=== PATIENT | female | born 1985 | race Caucasian/White ===

== ENCOUNTER 2016-10-05 10:15 | Emergency (ER) | payer BC ==
[2016-10-05 10:38] VITALS: BP 132/73; PULSE 88; RESP 17; TEMP 98
[2016-10-05] MEDS ORDERED: predniSONE 50 MG TAB PO STA (11:30)
--- NOTE | 2016-10-05 11:33 | ED ---
General Adult HPI - General Chief complaint: Allergic Reaction Stated complaint: bee sting/arm swollen Time Seen by Provider: 10/05/16 11:01 Source: patient, RN notes reviewed Mode of arrival: ambulatory Limitations: no limitations - History of Present Illness Initial comments: Patient 31-year-old female who presents emergency room today with a chief complaint of a bee sting that occurred 2 days ago. She states she was stung to the right forearm. She's noticed that the swelling does not seem to be improving. Patient states she's been trying Benadryl at home with little relief. She denies any other complaints or associated symptoms. Patient denies any recent fever, chills, shortness of breath, chest pain, back pain, abdominal pain, nausea or vomiting, numbness or tingling, dysuria or hematuria, constipation or diarrhea, headaches or visual changes, or any other complaints. - Related Data Previous Rx's Medication Instructions Recorded Famotidine [Pepcid] 20 mg PO BID #20 tablet 10/05/16 Hydrocortisone Cream 1 applic TOPICAL TID #1 cream..g. 10/05/16 [Hydrocortisone 1% Cream] diphenhydrAMINE [Benadryl] 1 - 2 tab PO Q6HR PRN #30 capsule 10/05/16 predniSONE 50 mg PO DAILY #5 tab 10/05/16 Allergies Allergy/AdvReac Type Severity Reaction Status Date / Time bee pollen Allergy Itching Verified 10/05/16 10:45 bee venom protein (honey bee) Allergy Itching Verified 10/05/16 10:45 mold Allergy Unknown Verified 10/05/16 10:45 Review of Systems ROS Statement: Those systems with pertinent positive or pertinent negative responses have been documented in the HPI. ROS Other: All systems not noted in ROS Statement are negative. Past Medical History Past Medical History: No Reported History History of Any Multi-Drug Resistant Organisms: None Reported Past Surgical History: No Surgical Hx Reported Past Psychological History: No Psychological Hx Reported Smoking Status: Never smoker Past Alcohol Use History: Rare Past Drug Use History: None Reported General Exam - General Exam Comments Initial Comments: General: The patient is awake and alert, in no distress, and does not appear acutely ill. Neck: The neck is supple, there is no tenderness or JVD. Cardiovascular: There is a regular rate and rhythm. No murmur, rub or gallop is appreciated. Respiratory: Lungs are clear to auscultation, respirations are non-labored, breath sounds are equal. No wheezes, stridor, rales, or rhonchi. Musculoskeletal: Full range motion. Sensation intact pulses equal bilaterally 2 +. Strength 5/5. Neurological: A&O x 3. CN II-XII intact, There are no obvious motor or sensory deficits. Coordination appears grossly intact. Speech is normal. Skin: He does have local redness to the posterior aspect of the right forearm. Measures approximately 10-12 cm across the largest section. It is red and inflamed there is no lymphangitic streaking. Psychiatric: Normal mood and affect. Limitations: no limitations Course Vital Signs 10/05/16 10:34 Temperature 98.0 F Pulse Rate 88 Respiratory 17 Rate Blood Pressure 132/73 O2 Sat by Pulse 98 Oximetry Medical Decision Making - Medical Decision Making Patient given dose of steroids here in the emergency room. She is advised to continue Benadryl also a topical steroid and Pepcid. Will be provided a prescription for steroids to use if symptoms continue his symptoms are not improving. Advised return to emergency room if any symptoms increase or worsen or for any other concerns. Disposition Clinical Impression: Allergic reaction Disposition: HOME SELF-CARE Condition: Good Instructions: Insect Bite or Sting (ED) Additional Instructions: Please use medication as discussed. Please follow-up with family doctor in the next 2 days of symptoms have not improved. Please return to emergency room if the symptoms increase or worsen or for any other concerns. Prescriptions: diphenhydrAMINE [Benadryl] 1 - 2 tab PO Q6HR PRN #30 capsule PRN Reason: Allergic Reaction Famotidine [Pepcid] 20 mg PO BID #20 tablet Hydrocortisone Cream [Hydrocortisone 1% Cream] 1 applic TOPICAL TID #1 cream..g. predniSONE 50 mg PO DAILY #5 tab Referrals: Vasu Frazier MD [Primary Care Provider] - 1-2 days Time of Disposition: 11:33
== END 2016-10-05 11:57 | disposition home or self-care (01) ==
LOC: EC 10:15
DX: T63.441A Toxic effect of venom of bees, accidental (unintentional), initial encounter (principal); Z91.030 Bee allergy status; Z91.048 Other nonmedicinal substance allergy status
CPT/HCPCS: 99283 ×2; J7512

== ENCOUNTER 2017-06-23 22:49 | Outpatient (CLI) | payer BC, OTHER ==
[2017-06-23 23:53] LABS: Appearance,Urine Cloudy (Clear); Bacteria,Urine Rare /hpf; Bilirubin,Urine Negative (Negative); Blood,Urine Negative (Negative); Color,Urine Yellow; Glucose,Urine (UA) Negative (Negative); Ketones,Urine Negative (Negative); Leukocyte Esterase,Urine Small (Negative); Mucus,Urine Rare /hpf; Nitrite,Urine Negative (Negative); PH, Urine 5.5 (5.0-8.0); Protein,Urine Trace (Negative); RBC,Urine 2 /hpf (0-5); Squamous Epithelial Cell,Urine 6 /hpf (0-4); Urobilinogen,Urine <2.0 mg/dL (<2.0); WBC,Urine 5 /hpf (0-5)
[2017-06-24] MEDS: TERBUTALINE 1 MG/ML VIAL SQ PRN ×2 (00:03→00:21)
[2017-06-24] MEDS: LACTATED RINGERS 1,000 ML IV ONE ×2 (00:24)
[2017-06-24 01:18] VITALS: BP 129/80; PULSE 89; RESP 16; TEMP 98
--- NOTE | 2017-06-25 10:35 | P.MSEPDOC ---
Presenting Problems - Arrival Data Date of Arrival on Unit: 06/23/17 Time of Arrival on Unit: 22:49 Mode of Transport: Wheelchair - Complaint OB-Reason for Admission/Chief Complaint: Rule Out SROM, Pain Comment: leaking around 1999. no leaking since. lower back and abdominal pain. 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 Review of Systems - Review of Systems Constitutional: No problems Breast: No problems ENT: No problems Cardiovascular: No problems Respiratory: No problems Gastrointestinal: No problems Genitourinary: Increased frequency Musculoskeletal: No problems Neurological: No problems Skin: No problems Vital Signs - Temperature Temperature: 98.0 F Temperature Source: Temporal Artery Scan - Pulse Right Sitting Brachial Pulse Rate: 89 Pulse Assessment Method: Automatic Cuff - Respirations Respiratory Rate: 16 Oxygen Delivery Method: Room Air O2 Sat by Pulse Oximetry: 98 - Blood Pressure Right Arm Sitting Blood Pressure: 129/80 Blood Pressure Mean: 96 Blood Pressure Source: Automatic Cuff Medical Screen Scoring (Pre) - Cervical Exam Dilation: 1-3 cm = 1 Effacement: More than 50% = 2 Membranes: Intact - Uterine Contractions Frequency: < 36 weeks = 6 Duration: > 40 seconds = 2 - Pain Assessment Pain Location and Character: Lower, Abdomen Pain Scale Used: Numeric (1 - 10) Pain Intensity: 3 Pain Management Goal: 2 Pain Description: *Acute, Cramping, Pressure Pain Radiation Location: lower back Pain Frequency: Intermittent Pain Duration: 3 Pain Duration Units: Hours Pain Behavior: Vocalization Pain Aggravating Factors: Activity - Assessment Baseline FHR: 135 Heart Rate - NICHD Category: Category I (Normal) = 0 NST: Non-reactive = 3 - Total Score Total Score (Pre): 14 - Level of Risk Level of Risk: High (10+) Physician Notification (Pre) - Physician Notified Physician Notified Date: 06/24/17 Physician Notified Time: 23:42 Physician/Practitioner Notifed:: rachael Spoke With: mechelle New Order Received: Yes - Notification Comment Comment: hydrate with 1L bolus of LR, start terbulatline protocol Medical Screen Scoring (Post) - Cervical Exam Dilation: 1-3 cm = 1 Effacement: More than 50% = 2 Membranes: Intact - Uterine Contractions Frequency: N/A Duration: N/A Intensity: N/A - Maternal Vital Signs Maternal Temperature: N/A Maternal Blood Pressure: N/A Signs of Preeclampsia: N/A Maternal Respirations: N/A - Pain Assessment Pain Scale Used: Numeric (1 - 10) Pain Intensity: 2 - Assessment Heart Rate: 135 Heart Rate - NICHD Category: Category I (Normal) = 0 NST: Non-reactive = 3 Position: N/A Station: N/A - Total Score Total Score (Post): 6 - Post Treatment Level of Risk Post Treatment Level of Risk: Medium (6-9) Physician Notification (Post) - Physician Notified Physician Notified Date: 06/24/17 Physician Notified Time: 00:41 Physician/Practitioner Notified:: rachael Spoke With: rachael New Order Received: Yes - Notification Comment Comment: d/c home with orders to f/u with [facility] tomorrow AM. Disposition - Disposition OB Disposition: Discharge to home Discharge Date: 06/24/17 Discharge Time: 00:57 I agree with the RN Medical Screening Exam: Yes Risk & Benefit of care provided described in d/c instruction: Yes Diagnosis: FALSE LABOR BEFORE 37 COMPLETED WEEKS OF GEST, THIRD TRI
== END 2017-06-24 00:57 | disposition home or self-care (01) ==
LOC: FBPOP 22:49
PROVIDERS: ATTEND Obstetrics & Gynecology
DX: O47.03 False labor before 37 completed weeks of gestation, third trimester (principal); Z3A.34 34 weeks gestation of pregnancy
CPT/HCPCS: 59025; 99214; 96360; 96372; 84112; 81001; J3105

== ENCOUNTER 2017-10-20 00:16 | Emergency (ER) | payer BC, OTHER ==
[2017-10-20] MEDS ORDERED: MORPHINE SULFATE 4 MG/ML SYRINGE IV STA (00:49)
[2017-10-20] MEDS ORDERED: SODIUM CHLORIDE 0.9% 1,000 ML IV STA (00:49)
[2017-10-20] MEDS ORDERED: ONDANSETRON 4 MG/2 ML VIAL IVP STA (00:49)
[2017-10-20 01:16] LABS: Basophils % (A) 0 %; Eosinophils % (A) 0 %; HCT 44.7 % (34.0-46.0); HGB 13.6 gm/dL (11.4-16.0); Lymphocytes # (A) 1.3 k/uL (1.0-4.8); Lymphocytes % (A) 11 %; MCH 26.6 pg (25.0-35.0); MCHC 30.5 g/dL (31.0-37.0); MCV 87.2 fL (80.0-100.0); Mean Platelet Volume 6.7; Monocytes # (A) 0.5 k/uL (0-1.0); Monocytes % (A) 4 %; Neutrophils # (A) 10.1 k/uL (1.3-7.7); Neutrophils % (A) 84 %; Platelet Count 320 k/uL (150-450); RBC 5.13 m/uL (3.80-5.40); WBC 12.1 k/uL (3.8-10.6)
[2017-10-20 01:21] LABS: Appearance,Urine Cloudy (Clear); Bacteria,Urine Occasional /hpf; Bilirubin,Urine Negative (Negative); Blood,Urine Negative (Negative); Color,Urine Yellow; Glucose,Urine (UA) Negative (Negative); Ketones,Urine Negative (Negative); Leukocyte Esterase,Urine Negative (Negative); Mucus,Urine Occasional /hpf; Nitrite,Urine Negative (Negative); PH, Urine 6.5 (5.0-8.0); Protein,Urine Trace (Negative); Specific Gravity,Urine 1.021 (1.001-1.035); Squamous Epithelial Cell,Urine 8 /hpf (0-4); Urobilinogen,Urine <2.0 mg/dL (<2.0); WBC,Urine 1 /hpf (0-5)
[2017-10-20 01:30] LABS: ALT 42 U/L (9-52); AST 45 U/L (14-36); Albumin 4.5 g/dL (3.5-5.0); Alkaline Phosphatase 95 U/L (38-126); Amylase 67 U/L (30-110); Anion Gap 8 mmol/L; Blood Urea Nitrogen 12 mg/dL (7-17); Calcium 9.7 mg/dL (8.4-10.2); Carbon Dioxide 27 mmol/L (22-30); Chloride 103 mmol/L (98-107); Glucose 148 mg/dL (74-99); Lipase 88 U/L (23-300); Potassium 4.3 mmol/L (3.5-5.1); Sodium 138 mmol/L (137-145); Total Bilirubin 0.6 mg/dL (0.2-1.3); Total Protein 8.1 g/dL (6.3-8.2)
--- NOTE | 2017-10-20 01:46 | US ---
EXAMINATION TYPE: US abdomen limited DATE OF EXAM: 10/20/2017 COMPARISON: NONE CLINICAL HISTORY: Right upper quadrant pain. RUQ pain nausea and vomiting. EXAM MEASUREMENTS: Liver Length: 19.2 cm Gallbladder Wall: 0.23 cm CBD: 0.9 cm Right Kidney: 11.0 x 4.1 x 3.8 cm Pancreas: Tail obscured by overlying bowel gas Liver: Hepatomegaly. Gallbladder: Echogenic foci seen. Hydropic 12.5cm. Evidence for sonographic Tinsley's sign: Yes CBD: Dilated Right Kidney: No hydronephrosis or masses seen IMPRESSION: Large gallbladder with multiple tiny gallstones and echogenic bile. No dilated intrahepat ic bile ducts. Common bile duct is large and this suggests some degree of gallbladder dysfunction. No gallbladder wall thickening.
--- NOTE | 2017-10-20 01:51 | ED ---
Abdominal Pain HPI - General Chief Complaint: Abdominal Pain Stated Complaint: Flank Pain Time Seen by Provider: 10/20/17 00:29 Source: patient, family Mode of arrival: ambulatory Limitations: no limitations - History of Present Illness Initial Comments: 32-year-old female patient presents to the emergency department today for complaints of right upper quadrant abdominal pain and right upper back pain. Patient states this started approximately 4 hours ago and has been steadily getting worse. Patient states she has been nauseated and has had several episodes of vomiting. Patient denies any history of similar symptoms. Denies any fevers or chills. She denies any constipation or diarrhea. Patient denies any recent rash, shortness breath, chest pain, numbness, tingling, dizziness, weakness, hematuria, dysuria, urinary urgency, urinary frequency, headache, visual changes, or any other complaints. Denies any chance of . - Related Data Home Medications Medication Instructions Recorded Confirmed Acetaminophen [Tylenol] 325 mg PO Q4H 06/23/17 10/20/17 Loratadine [Claritin] 10 mg PO DAILY 06/23/17 10/20/17 Pnv No.111/Iron/Folate/Dha 1 cap PO DAILY 06/23/17 10/20/17 [Nestabs One Softgel] Sertraline [Zoloft] 25 mg PO DAILY 10/20/17 10/20/17 Previous Rx's Medication Instructions Recorded Ondansetron [Zofran ODT] 4 mg PO Q8HR PRN #10 tab 10/20/17 Allergies Allergy/AdvReac Type Severity Reaction Status Date / Time bee pollen Allergy Itching Verified 10/20/17 00:22 bee venom protein (honey bee) Allergy Itching Verified 10/20/17 00:22 mold Allergy Unknown Verified 10/20/17 00:22 Review of Systems ROS Statement: Those systems with pertinent positive or pertinent negative responses have been documented in the HPI. ROS Other: All systems not noted in ROS Statement are negative. Past Medical History Past Medical History: No Reported History Additional Past Medical History / Comment(s): Gestational Diabetes 02/05, History of Any Multi-Drug Resistant Organisms: None Reported Past Surgical History: No Surgical Hx Reported Additional Past Surgical History / Comment(s): wisdom teeth Past Psychological History: No Psychological Hx Reported Smoking Status: Never smoker Past Alcohol Use History: Rare Past Drug Use History: None Reported General Exam Limitations: no limitations General appearance: alert, in no apparent distress, other (This is a well- developed, obese adult female patient in mild distress related to pain. Vital signs upon presentation are temperature 98.5F, pulse 87, respirations 20, blood pressure 148/88, pulse ox 99% on room air.) Eye exam: Present: normal appearance, PERRL, EOMI. Absent: scleral icterus, conjunctival injection, periorbital swelling ENT exam: Present: normal exam, normal oropharynx, mucous membranes moist Respiratory exam: Present: normal lung sounds bilaterally. Absent: respiratory distress, wheezes, rales, rhonchi, stridor Cardiovascular Exam: Present: regular rate, normal rhythm, normal heart sounds. Absent: systolic murmur, diastolic murmur, rubs, gallop, clicks GI/Abdominal exam: Present: soft, tenderness (Right upper quadrant tenderness, positive Tinsley sign), normal bowel sounds. Absent: distended, guarding, rebound, rigid Back exam: Present: normal inspection, tenderness (Right upper back tenderness) Neurological exam: Present: alert, oriented X3, CN II-XII intact Psychiatric exam: Present: normal affect, normal mood Skin exam: Present: warm, dry, intact, normal color. Absent: rash Course Vital Signs 10/20/17 00:19 Temperature 98.5 F Pulse Rate 87 Respiratory 20 Rate Blood Pressure 148/88 O2 Sat by Pulse 99 Oximetry Medical Decision Making - Medical Decision Making 32-year-old female patient presents the emergency department today for complaints of right upper quadrant abdominal pain, right upper back pain. Physical examination did reveal right upper quadrant abdominal tenderness with positive Tinsley sign. Labs reviewed and showed a white blood cell count at 12.1 , AST 45. hCG negative. Ultrasound did show large gallbladder with multiple tiny gallstones. Common bile duct was enlarged suggesting gallbladder status function. There is no gallbladder wall thickening. Patient is afebrile, vital signs are stable. She is feeling better after receiving medications here in the emergency department. Did discuss likelihood that she will need to have her gallbladder removed however given there is no sign of cholecystitis at this time she is able to follow-up outpatient with the surgeon. Patient is comfortable with this plan. She'll be given medications and manage symptoms at home. She is instructed to follow low-fat diet and avoid greasy foods. Return parameters discussed in detail. She verbalizes understanding and agrees with this plan. - Lab Data Result diagrams: 10/20/17 01:09 10/20/17 01:09 Lab Results 10/20/17 10/20/17 10/20/17 Range/Units 01:09 01:09 01:09 WBC 12.1 H (3.8-10.6) k/uL RBC 5.13 (3.80-5.40) m/uL Hgb 13.6 (11.4-16.0) gm/dL Hct 44.7 (34.0-46.0) % MCV 87.2 (80.0-100.0) fL MCH 26.6 (25.0-35.0) pg MCHC 30.5 L (31.0-37.0) g/dL RDW 14.0 (11.5-15.5) % Plt Count 320 (150-450) k/uL Neutrophils % 84 % Lymphocytes % 11 % Monocytes % 4 % Eosinophils % 0 % Basophils % 0 % Neutrophils # 10.1 H (1.3-7.7) k/uL Lymphocytes # 1.3 (1.0-4.8) k/uL Monocytes # 0.5 (0-1.0) k/uL Eosinophils # 0.0 (0-0.7) k/uL Basophils # 0.0 (0-0.2) k/uL Sodium 138 (137-145) mmol/L Potassium 4.3 (3.5-5.1) mmol/L Chloride 103 (98-107) mmol/L Carbon Dioxide 27 (22-30) mmol/L Anion Gap 8 mmol/L BUN 12 (7-17) mg/dL Creatinine 0.70 (0.52-1.04) mg/dL Est GFR (CKD-EPI)AfAm >90 (>60 ml/min/1.73 sqM) Est GFR (CKD-EPI)NonAf >90 (>60 ml/min/1.73 sqM) Glucose 148 H (74-99) mg/dL Calcium 9.7 (8.4-10.2) mg/dL Total Bilirubin 0.6 (0.2-1.3) mg/dL AST 45 H (14-36) U/L ALT 42 (9-52) U/L Alkaline Phosphatase 95 (38-126) U/L Total Protein 8.1 (6.3-8.2) g/dL Albumin 4.5 (3.5-5.0) g/dL Amylase 67 (30-110) U/L Lipase 88 (23-300) U/L Urine Color Urine Appearance (Clear) Urine pH (5.0-8.0) Ur Specific [place] (1.001-1.035) Urine Protein (Negative) Urine Glucose (UA) (Negative) Urine Ketones (Negative) Urine Blood (Negative) Urine Nitrite (Negative) Urine Bilirubin (Negative) Urine Urobilinogen (<2.0) mg/dL Ur Leukocyte Esterase (Negative) Urine WBC (0-5) /hpf Ur Squamous Epith Cells (0-4) /hpf Urine Bacteria (None) /hpf Urine Mucus (None) /hpf Urine HCG, Qual Not Detected (Not Detectd) 10/20/17 Range/Units 01:09 WBC (3.8-10.6) k/uL RBC (3.80-5.40) m/uL Hgb (11.4-16.0) gm/dL Hct (34.0-46.0) % MCV (80.0-100.0) fL MCH (25.0-35.0) pg MCHC (31.0-37.0) g/dL RDW (11.5-15.5) % Plt Count (150-450) k/uL Neutrophils % % Lymphocytes % % Monocytes % % Eosinophils % % Basophils % % Neutrophils # (1.3-7.7) k/uL Lymphocytes # (1.0-4.8) k/uL Monocytes # (0-1.0) k/uL Eosinophils # (0-0.7) k/uL Basophils # (0-0.2) k/uL Sodium (137-145) mmol/L Potassium (3.5-5.1) mmol/L Chloride (98-107) mmol/L Carbon Dioxide (22-30) mmol/L Anion Gap mmol/L BUN (7-17) mg/dL Creatinine (0.52-1.04) mg/dL Est GFR (CKD-EPI)AfAm (>60 ml/min/1.73 sqM) Est GFR (CKD-EPI)NonAf (>60 ml/min/1.73 sqM) Glucose (74-99) mg/dL Calcium (8.4-10.2) mg/dL Total Bilirubin (0.2-1.3) mg/dL AST (14-36) U/L ALT (9-52) U/L Alkaline Phosphatase (38-126) U/L Total Protein (6.3-8.2) g/dL Albumin (3.5-5.0) g/dL Amylase (30-110) U/L Lipase (23-300) U/L Urine Color Yellow Urine Appearance Cloudy H (Clear) Urine pH 6.5 (5.0-8.0) Ur Specific [place] 1.021 (1.001-1.035) Urine Protein Trace H (Negative) Urine Glucose (UA) Negative (Negative) Urine Ketones Negative (Negative) Urine Blood Negative (Negative) Urine Nitrite Negative (Negative) Urine Bilirubin Negative (Negative) Urine Urobilinogen <2.0 (<2.0) mg/dL Ur Leukocyte Esterase Negative (Negative) Urine WBC 1 (0-5) /hpf Ur Squamous Epith Cells 8 H (0-4) /hpf Urine Bacteria Occasional H (None) /hpf Urine Mucus Occasional H (None) /hpf Urine HCG, Qual (Not Detectd) - Radiology Data Radiology results: report reviewed Ultrasound of the right upper quadrant was obtained. Report was reviewed in its entirety. Impression by Dr. Hollingsworth shows large gallbladder with multiple tiny gallstones and echogenic bile. No dilated intrahepatic bile ducts. Common bile duct is large and this suggests some degree of cough bladder dysfunction. No gallbladder wall thickening. Disposition Clinical Impression: Cholelithiasis, Dysfunctional gallbladder Disposition: HOME SELF-CARE Condition: Good Instructions: Gallstones (ED), Low Fat Diet (ED) Additional Instructions: Avoid fatty or greasy foods. Take medications as directed. Follow-up with surgeon for recheck as soon as possible. Return here immediately for any new, worsening, or concerning symptoms. Prescriptions: Ondansetron [Zofran ODT] 4 mg PO Q8HR PRN #10 tab PRN Reason: Nausea Is patient prescribed a controlled substance at d/c from ED?: No Referrals: Vasu Frazier MD [Primary Care Provider] - 1-2 days Austyn Mejia MD [Medical Doctor] - 1-2 days Time of Disposition: 02:12
[2017-10-20] MEDS ORDERED: ACET/COD 300 MG/30 MG STARTER PACK 6 TAB BTL PO STA (02:10)
[2017-10-20] MEDS ORDERED: ONDANSETRON 4 MG ODT STARTER PACK 2 TAB BTL PO STA (02:10)
[2017-10-20 02:21] VITALS: BP 153/92; PULSE 84; RESP 18; TEMP 98.7
== END 2017-10-20 02:30 | disposition home or self-care (01) ==
LOC: EC 00:16
DX: K80.20 Calculus of gallbladder without cholecystitis without obstruction (principal); K82.8 Other specified diseases of gallbladder; Z32.02 Encounter for pregnancy test, result negative; Z91.030 Bee allergy status; Z91.048 Other nonmedicinal substance allergy status; Z79.899 Other long term (current) drug therapy
CPT/HCPCS: 36415; 80053; 82150; 83690; 85025; 81001; 81025; 76705; 99284; 96374; 96375; 96361; J2270; J2405; S0119

== ENCOUNTER 2017-11-15 06:46 | Day surgery (SDC) | payer BC ==
[2017-11-09 09:20] VITALS: BMI 39.4
[~2017-11-15 06:46] MED LIST: HEPARIN SODIUM,PORCINE 5,000 UNIT/ML 1 ML VIAL SQ ONE; LACTATED RINGERS 1,000 ML IV SCH; LIDOCAINE 1% 20 ML VIAL (10MG/ML) FOR IV START INTRADERMA PRN; ceFAZolin IN SWFI 2 GM/20 ML SYRINGE IVP ONE
[2017-11-15] MEDS: ONDANSETRON 4 MG/2 ML VIAL IVP ONE ×2 (07:27→09:18)
[2017-11-15] MEDS ORDERED: DEXAMETHASONE SOD PHOSPHATE 10 MG/ML 1 ML VIAL IV ONE (07:28)
[2017-11-15] MEDS ORDERED: MIDAZOLAM 2 MG/2 ML VIAL IVP ONE (07:30)
--- NOTE | 2017-11-15 08:00 | P.GSHP ---
History of Present Illness H&P Date: 11/15/17 Chief Complaint: Right upper quadrant pain This is a 32-year-old female who presents today for laparoscopic ostectomy. Patient is a complete the right upper quadrant pain. She is worked up found have gallstones. Past Medical History Past Medical History: Diabetes Mellitus Additional Past Medical History / Comment(s): Hx Gestational Diabetes 02/05. History of Any Multi-Drug Resistant Organisms: None Reported Past Surgical History: No Surgical Hx Reported Additional Past Surgical History / Comment(s): [place] teeth removed. Past Anesthesia/Blood Transfusion Reactions: No Reported Reaction Past Psychological History: Depression Additional Psychological History / Comment(s): Current depression, "lost an almost term baby June 2017." Smoking Status: Never smoker Past Alcohol Use History: Rare Past Drug Use History: None Reported - Past Family History Mother Family Medical History: No Reported History Medications and Allergies Home Medications Medication Instructions Recorded Confirmed Type Loratadine [Claritin] 10 mg PO DAILY 06/23/17 11/15/17 History Pnv No.111/Iron/Folate/Dha 1 cap PO DAILY 06/23/17 11/15/17 History [Nestabs One Softgel] Sertraline [Zoloft] 25 mg PO HS 10/20/17 11/15/17 History Allergies Allergy/AdvReac Type Severity Reaction Status Date / Time bee pollen Allergy Itching Verified 11/15/17 07:09 bee venom protein (honey bee) Allergy Itching Verified 11/15/17 07:09 mold Allergy Unknown Verified 11/15/17 07:09 Environmental Allergy See Comment Uncoded 11/15/17 07:09 Surgical - Exam Vital Signs Temp Pulse Resp BP Pulse Ox 97.8 F 78 16 130/82 98 11/15/17 07:13 11/15/17 07:13 11/15/17 07:13 11/15/17 07:13 11/15/17 07:13 - General well developed, no distress - Eyes PERRL - ENT normal pinna - Neck no masses - Respiratory normal expansion - Cardiovascular Rhythm: regular - Abdomen Mild right quadrant pain Abdomen: soft Assessment and Plan Assessment: When quadrant pain Cholelithiasis We'll perform laparoscopic cholecystectomy
[2017-11-15] MEDS ORDERED: BUPIVACAIN-EPI 0.25%-1:200,000 30 ML VIAL SQ ONE (08:30)
[2017-11-15] MEDS ORDERED: LACTATED RINGERS 1,000 ML IV ONE (08:52)
[2017-11-15] MEDS: HYDROmorphone 1 MG/ML 1 ML SYRINGE IVP PRN ×4 (09:18→09:42)
[2017-11-15 09:21] VITALS: TEMP 97.4
[2017-11-15] MEDS ORDERED: diphenhydrAMINE 50 MG/ML 1 ML VIAL IVP ONE (09:27)
[2017-11-15] MEDS ORDERED: HYDROcodone/APAP 7.5-325MG 1 EACH TAB PO ONE (10:34)
[2017-11-15 11:14] VITALS: RESP 18
[2017-11-15 11:41] VITALS: BP 117/77; PULSE 88
--- NOTE | 2017-11-15 15:02 | P.OP ---
Date of Procedure: 11/15/17 Preoperative Diagnosis: Cholelithiasis Cholecystitis Postoperative Diagnosis: Cholecystitis Cholelithiasis Procedure(s) Performed: Laparoscopic cholecystectomy Anesthesia: MAXI Surgeon: Guanakito Coto Estimated Blood Loss (ml): 5 Pathology: other (Gallbladder) Condition: stable Disposition: PACU Description of Procedure: The patient was placed on the operating table. The patient received a general endotracheal tube anesthesia. The patients abdomen was prepped and draped in the usual sterile fashion. Through an infraumbilical stab incision, the fascia of the anterior abdominal wall was grasped with a pair of Kochers and then the Veress needle was placed in the peritoneal cavity. Position of the Veress needle was confirmed with positive drop test. The abdomen was then insufflated. After adequate insufflation, the 10 mm trocar was placed in the peritoneal cavity. Following this the laparoscope was placed in the peritoneal cavity. The patient was placed in the head-up, right side up position and then a 5 mm trocar was placed in the right lateral and right subcostal position under direct visualization. A 8 mm trocar was placed in the epigastric position. The gallbladder was grasped in the fundus and infundibulum. Traction on the gallbladder was placed in the lateral and the cephalad positions. The triangle of [place] was visualized.. The cystic duct was bluntly dissected until the union of the cystic duct and common bile duct was seen. The cystic duct was then divided and sealed with the Harmonic scissors. A PDS Endoloop was then placed throughout the cystic duct stump. The cystic artery divided and sealed with the Harmonic scissors. The gallbladder was then removed from the liver bed using Harmonic scissors. The gallbladder was then extracted through the epigastric port site. Operative field was checked for any bleeding spots and Harmonic scissors was used to coagulate the liver bed. The abdomen was irrigated. The trocars were removed. The skin was closed using interrupted 3-0 Vicryl suture. Dermabond dressing were applied. The patient tolerated the procedure well.
== END 2017-11-15 12:01 | disposition home or self-care (01) ==
LOC: OR 06:46
PROVIDERS: ATTEND Surgery
DX: K80.10 Calculus of gallbladder with chronic cholecystitis without obstruction (principal); F32.9 Major depressive disorder, single episode, unspecified; Z79.899 Other long term (current) drug therapy; Z91.030 Bee allergy status; Z91.09 Other allergy status, other than to drugs and biological substances
CPT/HCPCS: 47562; 81025; 88304; J2250; J1200; J1644; J1100; J2405; J1170; J0690

== ENCOUNTER → 2020-04-06 | Outpatient (CLI) | payer BC, OTHER ==
--- NOTE | 2020-04-07 14:06 | MM ---
Reason for exam: screening (asymptomatic). Baseline mammogram. History: Patient is nulliparous. Took hormonal contraceptives for 5 years beginning at age 21. Physical Findings: Nurse did not find any significant physical abnormalities on exam. MG Screening Mammo w CAD Bilateral CC and MLO view(s) were taken. The breast tissue is heterogeneously dense. This may lower the sensitivity of mammography. 1.2cm mildly enlarged intrammary node posterior upper outer quadrant may be reactive. 6 month follow up recommended. Otherwise, no discrete abnormality. These results were verbally communicated with the patient and result sheet given to the patient on 04/06/20. ASSESSMENT: Probably benign, BI-RAD 3 RECOMMENDATION: Follow-up diagnostic mammogram of the right breast in 6 months.
== END | disposition home or self-care (01) ==
LOC: RADMAMWWP 14:07
PROVIDERS: ATTEND Obstetrics & Gynecology
DX: Z12.31 Encounter for screening mammogram for malignant neoplasm of breast (principal)
CPT/HCPCS: 77067

== ENCOUNTER 2020-06-20 16:09 | Emergency (ER) | payer BC, OTHER ==
[2020-06-20 16:14] VITALS: TEMP 98.6
[2020-06-20] MEDS ORDERED: SODIUM CHLORIDE 0.9% 1,000 ML IV STA (16:35)
--- NOTE | 2020-06-20 16:38 | ED ---
SOB HPI - General Chief Complaint: Shortness of Breath Stated Complaint: OSMANI Source: patient, RN notes reviewed Mode of arrival: wheelchair Limitations: no limitations - History of Present Illness Initial Comments: Patient is a 35-year-old female that presents to emergency department complaining of shortness of breath and chest heaviness. She notes that she's been tested a couple times for Covid both came back negative. She noted that symptoms began on Monday or side spiking a low-grade fever. She also notes that she does have pretty bad seasonal ALLERGIES and her worst is here due to the rapid change in weather. She notes that at her primary care in urgent care they were treating her as an upper respiratory tract infection and hopes to prevent pneumonia. She presents today due to the clinic being closed to all and is having Covid. She was in no apparent distress or pain while sitting up in bed during the exam interview. She denied any chest pain headache nausea vomiting diarrhea constipation fatigue chills. - Related Data Home Medications Medication Instructions Recorded Confirmed Loratadine [Claritin] 10 mg PO AC-SUPPER 06/23/17 06/04/19 Sertraline [Zoloft] 25 mg PO HS 10/20/17 06/04/19 Pnv No.95/Ferrous Fum/Folic AC 1 each PO DAILY 06/04/19 [ Multivitamin Tablet] metFORMIN HCL [Glucophage] 500 mg PO AC-SUPPER 06/04/19 Allergies Allergy/AdvReac Type Severity Reaction Status Date / Time bee pollen Allergy Itching Verified 06/20/20 16:14 bee venom protein (honey bee) Allergy Itching Verified 06/20/20 16:14 mold Allergy Unknown Verified 06/20/20 16:14 Environmental Allergy See Comment Uncoded 06/20/20 16:14 Review of Systems ROS Statement: Those systems with pertinent positive or pertinent negative responses have been documented in the HPI. ROS Other: All systems not noted in ROS Statement are negative. Past Medical History Past Medical History: Diabetes Mellitus Additional Past Medical History / Comment(s): TYPE 2 DIABETES, ENVIRONMENTAL ALLERGIES, STATES LMP FEBRUARY AND STARTED SPOTTING. History of Any Multi-Drug Resistant Organisms: None Reported Past Surgical History: Cholecystectomy Additional Past Surgical History / Comment(s): WISDOM TEETH Past Anesthesia/Blood Transfusion Reactions: No Reported Reaction, Motion Sickness Past Psychological History: Depression Smoking Status: Never smoker Past Alcohol Use History: None Reported Past Drug Use History: None Reported - Past Family History Mother Family Medical History: No Reported History General Exam Limitations: no limitations General appearance: alert, in no apparent distress, obese Head exam: Present: atraumatic, normocephalic, normal inspection Eye exam: Present: normal appearance, PERRL, EOMI. Absent: scleral icterus, conjunctival injection, periorbital swelling Neck exam: Present: normal inspection. Absent: tenderness, meningismus, lymphadenopathy Respiratory exam: Present: normal lung sounds bilaterally. Absent: respiratory distress, wheezes, rales, rhonchi, stridor Cardiovascular Exam: Present: regular rate, normal rhythm, normal heart sounds. Absent: systolic murmur, diastolic murmur, rubs, gallop, clicks GI/Abdominal exam: Present: soft, normal bowel sounds. Absent: distended, tenderness, guarding, rebound, rigid Extremities exam: Present: normal inspection, full ROM, normal capillary refill. Absent: tenderness, pedal edema, joint swelling, calf tenderness Back exam: Present: normal inspection Neurological exam: Present: alert, oriented X3, CN II-XII intact Psychiatric exam: Present: normal affect, normal mood Skin exam: Present: warm, dry, intact, normal color. Absent: rash Course Vital Signs 06/20/20 16:11 Temperature 98.6 F Pulse Rate 86 Respiratory 20 Rate Blood Pressure 138/79 O2 Sat by Pulse 96 Oximetry Medical Decision Making - Medical Decision Making 35-year-old female complaining of shortness of breath with Covid like symptoms. Labs, 4 Plex swab, chest x-ray, 1 L normal saline ordered. Patient was informed that she does meet criteria for monoclonal antibody therapy if her test comes back positive for Covid. She does wish to undergo IV infusion in that scenario. Covid test positive. Patient will undergo monoclonal antibody therapy. Case discussed with Dr. Jacinto, patient can discharge home after IV infusion. - Lab Data Result diagrams: 06/20/20 16:48 06/20/20 16:48 Lab Results 06/20/20 06/20/20 06/20/20 Range/Units 16:48 16:48 16:48 WBC 4.4 (3.8-10.6) k/uL RBC 4.97 (3.80-5.40) m/uL Hgb 14.2 (11.4-16.0) gm/dL Hct 42.5 (34.0-46.0) % MCV 85.4 (80.0-100.0) fL MCH 28.5 (25.0-35.0) pg MCHC 33.4 (31.0-37.0) g/dL RDW 13.4 (11.5-15.5) % Plt Count 188 (150-450) k/uL MPV 7.3 Neutrophils % 79 % Lymphocytes % 16 % Monocytes % 3 % Eosinophils % 0 % Basophils % 0 % Neutrophils # 3.5 (1.3-7.7) k/uL Lymphocytes # 0.7 L (1.0-4.8) k/uL Monocytes # 0.1 (0-1.0) k/uL Eosinophils # 0.0 (0-0.7) k/uL Basophils # 0.0 (0-0.2) k/uL Sodium 140 (137-145) mmol/L Potassium 4.2 (3.5-5.1) mmol/L Chloride 108 H (98-107) mmol/L Carbon Dioxide 26 (22-30) mmol/L Anion Gap 6 mmol/L BUN 10 (7-17) mg/dL Creatinine 0.62 (0.52-1.04) mg/dL Est GFR (CKD-EPI)AfAm >90 (>60 ml/min/1.73 sqM) Est GFR (CKD-EPI)NonAf >90 (>60 ml/min/1.73 sqM) Glucose 135 H (74-99) mg/dL Calcium 8.8 (8.4-10.2) mg/dL Total Bilirubin 0.2 (0.2-1.3) mg/dL AST 30 (14-36) U/L ALT 23 (4-34) U/L Alkaline Phosphatase 73 (38-126) U/L Total Protein 7.1 (6.3-8.2) g/dL Albumin 4.0 (3.5-5.0) g/dL Influenza Type A (PCR) Not Detected (Not Detectd) Influenza Type B (PCR) Not Detected (Not Detectd) RSV (PCR) Not Detected (Not Detectd) SARS-CoV-2 (PCR) Detected A (Not Detectd) - EKG Data -: EKG Interpreted by Ks EKG shows normal: sinus rhythm Rate: normal EKG Comments: Ventricular rate 85 bpm, SD interval 152 ms, QRS duration 106 ms, QT/QTC 360/420 ms, PareT axes 38/58/28. Normal sinus rhythm, normal ECG. - Radiology Data Radiology results: report reviewed, image reviewed Chest x-ray: Left lower lobe pneumonia. Normal heart. Disposition Clinical Impression: COVID-19 Disposition: HOME SELF-CARE Condition: Stable Instructions (If sedation given, give patient instructions): Coronavirus Disease 2019 (COVID-19) Additional Instructions: Please return to the Emergency Department if symptoms worsen or any other concerns. Follow-up primary care after the 10-14 day quarantine. From symptom onset. Increase oral fluids. Can take [id number] anti-inflammatories for pain and fever control. Is patient prescribed a controlled substance at d/c from ED?: No Referrals: Vasu Frazier MD [Primary Care Provider] - 1-2 days Time of Disposition: 18:00
[2020-06-20 17:02] LABS: Basophils % (A) 0 %; Eosinophils % (A) 0 %; HCT 42.5 % (34.0-46.0); HGB 14.2 gm/dL (11.4-16.0); Lymphocytes # (A) 0.7 k/uL (1.0-4.8); Lymphocytes % (A) 16 %; MCH 28.5 pg (25.0-35.0); MCHC 33.4 g/dL (31.0-37.0); MCV 85.4 fL (80.0-100.0); Mean Platelet Volume 7.3; Monocytes # (A) 0.1 k/uL (0-1.0); Monocytes % (A) 3 %; Neutrophils # (A) 3.5 k/uL (1.3-7.7); Neutrophils % (A) 79 %; Platelet Count 188 k/uL (150-450); RBC 4.97 m/uL (3.80-5.40); RDW 13.4 % (11.5-15.5); WBC 4.4 k/uL (3.8-10.6)
[2020-06-20 17:11] LABS: ALT 23 U/L (4-34); AST 30 U/L (14-36); African American GFR (CKD) >90 (>60 ml/min/1.73 sqM); Alkaline Phosphatase 73 U/L (38-126); Anion Gap 6 mmol/L; Blood Urea Nitrogen 10 mg/dL (7-17); Calcium 8.8 mg/dL (8.4-10.2); Carbon Dioxide 26 mmol/L (22-30); Chloride 108 mmol/L (98-107); Glucose 135 mg/dL (74-99); Non-African American GFR(CKD) >90 (>60 ml/min/1.73 sqM); Potassium 4.2 mmol/L (3.5-5.1); Sodium 140 mmol/L (137-145); Total Bilirubin 0.2 mg/dL (0.2-1.3); Total Protein 7.1 g/dL (6.3-8.2)
--- NOTE | 2020-06-20 17:42 | XR ---
EXAMINATION TYPE: XR chest 2V DATE OF EXAM: 06/20/2020 COMPARISON: NONE HISTORY: Short of breath TECHNIQUE: 2 views FINDINGS: Heart and mediastinum are normal. There is some patchy interstitial and airspace infiltrate left lower lobe. There is possible small infiltrate right midlung field. Bony thorax is intact. IMPRESSION: Left lower lobe pneumonia. Normal heart.
[2020-06-20] MEDS ORDERED: SODIUM CHLORIDE 0.9% 50 ML IVPB ONE (18:15)
[2020-06-20] MEDS ORDERED: BAMLANIVIMAB (EUA) 700 MG, ETESEVIMAB (EUA) 1,400 MG in SODIUM CHLORIDE 0.9% 50 ML IVPB ONE (18:30)
[2020-06-20 19:18] VITALS: BP 128/79; PULSE 56; RESP 18
== END 2020-06-20 19:53 | disposition home or self-care (01) ==
LOC: EC 16:09
DX: U07.1 COVID-19 (principal); E11.9 Type 2 diabetes mellitus without complications; Z90.49 Acquired absence of other specified parts of digestive tract; Z79.84 Long term (current) use of oral hypoglycemic drugs
CPT/HCPCS: 36415; 93005; 80053; 85025; 87636; 71046; 99285; 96365; 96361; Q0245

== ENCOUNTER 2021-04-28 16:27 | Outpatient (CLI) | payer BC, OTHER ==
[2021-04-28 17:44] VITALS: BP 124/73; PULSE 88; RESP 16; TEMP 97.3
--- NOTE | 2021-05-14 10:37 | P.MSEPDOC ---
Presenting Problems - Arrival Data Date of Arrival on Unit: 04/28/21 Time of Arrival on Unit: 16:27 Mode of Transport: Ambulatory - Complaint OB-Reason for Admission/Chief Complaint: Possible Onset of Labor, Rule Out SROM Medical History - Information : 3 Para: 0 Term: 0 : 1 Abortions: Spontaneous or Elective: 1 Number of Living Children: 0 - Gestational Age Gestational Age by DANYELLE (wks/days): 38 Weeks and 4 Days - History Complications: GDM Review of Systems - Review of Systems Constitutional: No problems Breast: No problems ENT: No problems Cardiovascular: No problems Respiratory: No problems Gastrointestinal: No problems Genitourinary: No problems Musculoskeletal: No problems Neurological: No problems Skin: No problems Vital Signs - Temperature Temperature: 97.3 F Temperature Source: Temporal Artery Scan - Pulse Right Pulse Rate: 88 Pulse Assessment Method: Automatic Cuff - Respirations Respiratory Rate: 16 Oxygen Delivery Method: Room Air O2 Sat by Pulse Oximetry: 100 - Blood Pressure Right Arm Blood Pressure: 124/73 Blood Pressure Mean: 90 Blood Pressure Source: Automatic Cuff Medical Screen Scoring - Cervical Exam Dilation (cm): 0 Membranes: Intact - Assessment - Baby A Baseline FHR: 140 Heart Rate - NICHD Category: Category I (Normal) NST: Reactive Physician Notification - Physician Notified Physician Notified Date: 04/28/21 Physician Notified Time: 17:20 Physician: Nory Vasquez New Order Received: Yes (discharge home) Maternal Triage Index - Maternal Triage Index Presenting for scheduled procedure w/no complaint: No - Stat/Priority 1 Stat Priority 1: No - Urgent/Priority 2 Urgent Priority 2: No - Prompt/Priority 3 Prompt Priority 3: No - Non-Urgent/Priority 4 Non-Urgent Priority 4: Yes Criteria Met for Priority 4: Amnisure negative Disposition - Disposition OB Disposition: Physician follow up in office, Discharge to home Discharge Date: 04/28/21 Discharge Time: 17:25 I agree with the RN Medical Screening Exam: Yes Case reviewed; plan agreed upon as documented in EMR&OBIX.: Yes Comments: Patient was neither seen nor examined by me Diagnosis: FALSE LABOR AT OR AFTER 37 COMPLETED WEEKS OF GESTATION
== END 2021-04-28 17:35 | disposition home or self-care (01) ==
LOC: FBPOP 16:27
PROVIDERS: ATTEND Obstetrics & Gynecology
DX: O47.1 False labor at or after 37 completed weeks of gestation (principal); Z3A.38 38 weeks gestation of pregnancy; Z91.030 Bee allergy status; Z91.09 Other allergy status, other than to drugs and biological substances
CPT/HCPCS: 59025; 84112; 99213

== ENCOUNTER 2021-04-29 10:41 | Inpatient (IN) | payer BC, OTHER ==
[2021-04-29] MEDS ORDERED: LIDOCAINE 1% (PF) 10 MG/ML (30 ML SDV) SQ PRN (10:54)
[2021-04-29] MEDS ORDERED: CITRIC ACID-SODIUM CITRATE 15 ML CUP PO ONE (10:56)
[2021-04-29] MEDS: LACTATED RINGERS 1,000 ML IV SCH ×4 (11:20→21:33)
[2021-04-29 11:49] LABS: Basophils % (A) 0 %; Eosinophils % (A) 0 %; HCT 40.5 % (34.0-46.0); HGB 13.3 gm/dL (11.4-16.0); Lymphocytes # (A) 1.8 k/uL (1.0-4.8); Lymphocytes % (A) 16 %; MCHC 32.8 g/dL (31.0-37.0); MCV 88.5 fL (80.0-100.0); Mean Platelet Volume 8.1; Monocytes # (A) 0.4 k/uL (0-1.0); Monocytes % (A) 4 %; Neutrophils # (A) 8.6 k/uL (1.3-7.7); Neutrophils % (A) 79 %; Platelet Count 258 k/uL (150-450); RBC 4.58 m/uL (3.80-5.40); RDW 14.2 % (11.5-15.5)
[2021-04-29 11:52] LABS: Glucose,Whole Blood 85 mg/dL (75-99)
[2021-04-29] MEDS ORDERED: NALBUPHINE 10 MG/ML (1 ML AMP) ONE (12:04)
[2021-04-29] MEDS ORDERED: KETOROLAC 15 MG/ML 1 ML VIAL ONE (12:04)
[2021-04-29] MEDS ORDERED: OXYTOCIN 30 UNITS/500 ML NS BAG IV ONE (12:04)
[2021-04-29] MEDS ORDERED: MORPHINE SULFATE (PF) 0.3 MG/0.3 ML SYR ONE (12:04)
--- NOTE | 2021-04-29 12:04 | P.HPOB ---
History of Present Illness H&P Date: 04/29/21 Chief Complaint: Regular uterine contractions, breech presentation This is a 35-year-old female 3 para 1011 EDC 05/08/2021 at 38-5/7 weeks' gestation. Patient presented last night for labor check, she was sent home. Today in the office she again complained of regular strong uterine contractions. She was noted to be breech presentation. The decision today now is made to proceed with primary low transverse section. She denies vaginal bleeding or fluid leakage. Past medical history is significant for cold bed in June 2020, type 2 diabetes with initial hemoglobin A1c 6.1. Patient is also a and a. Past surgical history significant for cholecystectomy. Current medications vitamins daily, metformin daily. Baby aspirin daily. Social history patient is , father of the baby is present and involved. She denies alcohol drug use or any alcohol. ALLERGIES include bee stings and pollen. history blood type is A+, rubella status immune. VDRL testing, hepatitis B surface antigen, HIV testing, urine culture, gonorrhea and chlamydia cultures, group B strep cultures all negative. Blood sugars have been monitored carefully through the . On exam patient is 5 foot 2 inches, 246 Pounds, blood pressure 128/66. General physical exam is within normal limits. Infant is breech, head in the right upper maternal quadrant. heart tones are consistent with reactive NST and she is kishor approximately every 3-4 minutes apart spontaneously. Impression: 38-5/7 weeks intrauterine , gestational diabetic with good blood sugar control, obesity, advanced maternal age, breech presentation, in early labor. Plan: We will proceed with primary low transverse section. Tubal ligation is offered and declined. All risks benefits and alternatives discussed. Antibiotics given. Anesthesia present and aware. Review of Systems Constitutional: Reports as per HPI Past Medical History Past Medical History: Diabetes Mellitus Additional Past Medical History / Comment(s): TYPE 2 DIABETES, ENVIRONMENTAL ALLERGIES, STATES LMP FEBRUARY AND STARTED SPOTTING. History of Any Multi-Drug Resistant Organisms: None Reported Past Surgical History: Cholecystectomy Additional Past Surgical History / Comment(s): WISDOM TEETH Past Anesthesia/Blood Transfusion Reactions: No Reported Reaction, Motion Sick ness Past Psychological History: Depression Additional Psychological History / Comment(s): HX OF DEPRESSION - MISCARRIAGE 2017 Smoking Status: Never smoker Past Alcohol Use History: None Reported Past Drug Use History: None Reported - Past Family History Mother Family Medical History: No Reported History Medications and Allergies Home Medications Medication Instructions Recorded Confirmed Type Loratadine [Claritin] 10 mg PO AC-SUPPER 06/23/17 04/29/21 History Sertraline [Zoloft] 25 mg PO HS 10/20/17 04/29/21 History Pnv No.95/Ferrous Fum/Folic AC 1 each PO DAILY 06/04/19 04/29/21 History [ Multivitamin Tablet] metFORMIN HCL [Glucophage] 500 mg PO AC-SUPPER 06/04/19 04/29/21 History Aspirin [Adult Low Dose Aspirin EC] 1 tab PO DAILY 04/07/21 04/29/21 History Allergies Allergy/AdvReac Type Severity Reaction Status Date / Time bee pollen Allergy Itching Verified 04/29/21 10:51 bee venom protein (honey bee) Allergy Itching Verified 04/29/21 10:51 mold Allergy Unknown Verified 04/29/21 10:51 Environmental Allergy See Comment Uncoded 04/29/21 10:51 Exam Vital Signs Temp Pulse Resp BP 04/29/21 10:50 98.1 F 66 16 128/66 Intake and Output 04/28/21 04/29/21 04/29/21 22:59 06:59 14:59 Other: Weight 111.584 kg See dictation under HPI please Results Result Diagrams: 04/29/21 11:22 Abnormal Lab Results - Last 24 Hours (Table) 04/29/21 Range/Units 11:22 WBC 11.0 H (3.8-10.6) k/uL Neutrophils # 8.6 H (1.3-7.7) k/uL Assessment and Plan Assessment: 38-5/7 weeks intrauterine , breech presentation, early labor, advanced maternal age, type II diabetic with good blood sugar control. Here for primary low transverse section. Plan: Antibiotics given. We will proceed with primary low transverse section. All risks benefits and alternatives discussed in detail. All questions answered. Time with Patient: Less than 30
[2021-04-29] MEDS ORDERED: ZOLPIDEM 5 MG TAB PO PRN (12:59)
[2021-04-29] MEDS ORDERED: ONDANSETRON 4 MG/2 ML VIAL IVP PRN (12:59)
[2021-04-29] MEDS ORDERED: diphenhydrAMINE 50 MG CAP PO PRN (12:59)
[2021-04-29] MEDS ORDERED: SIMETHICONE 80 MG CHEWABLE PO PRN (12:59)
[2021-04-29] MEDS ORDERED: diphenhydrAMINE 25 MG CAP PO PRN (12:59)
[2021-04-29] MEDS ORDERED: NALOXONE 0.4 MG/ML 1 ML VIAL IV PRN (12:59)
[2021-04-29] MEDS ORDERED: METOCLOPRAMIDE 5 MG/ML 2 ML VIAL IVP PRN (12:59)
[2021-04-29] MEDS ORDERED: diphenhydrAMINE 50 MG/ML 1 ML VIAL IVP PRN ×2 (12:59)
--- NOTE | 2021-04-29 12:59 | P.OP ---
Date of Procedure: 04/29/21 Preoperative Diagnosis: 38-5/7 weeks, breech presentation, early labor, advanced maternal age, type 2 diabetes, maternal obesity Postoperative Diagnosis: Same, breech presentation liveborn male , normal-appearing tubes and ovaries. Small uterine fibroids noted. weight 9 lbs. 2 oz. or 130 g. Procedure(s) Performed: Primary low transverse section Anesthesia: spinal Surgeon: Mary Walker Reporter Anchor #1: Smiley Goldsmith Estimated Blood Loss (ml): 669 IV fluids (ml): 500 Urine output (ml): 400 Pathology: none sent Condition: stable Disposition: PACU Description of Procedure: Patient is brought to the operating suite where a spinal anesthesia with Duramorph is provided. She's placed in the dorsal supine position. Antibiotics given. The abdomen is prepped and draped in usual sterile fashion. The appropriate timeout is performed to assure proper patient and procedural identification. Child catheter to direct drainage. Bicitra given. The analgesia is checked and noted to be adequate. A low transverse skin incision is made in this is carried down through the subcutaneous tissue which is approximate 8 cm deep. Fascia is isolated, scored, extended bilaterally with curved Hylton scissors. Peritoneum is next identified and incised, there is no bowel or bladder involvement. Bladder blade is placed over the dome of the bladder. Bladder is at all times Well from the operative field to avoid bladder and/or ureteral injury. A low transverse uterine incision is made in this is carried down through the myometrium. Artificial amniorrhexis reveals abundant clear fluid. The infant is delivered in the mya breech position. Sacrum anterior. The abdomen is brought forth at which time a Pinard maneuver is used to deliver bilateral upper extremities. The 's head is delivered flexed position. Patient is officially delivered of a liveborn male infant at 1220 hours. The placenta is doubly clamped and ligated, he is handed to waiting nurses for evaluation where scores of 9 and 9 at one and 5 minutes respectively are given. The placenta is delivered manually, it is inspected and noted to be intact with trivascular cord at 1221 hours. Uterus is then externalized. It is massaged. It is swept clean with a sterile sponge to avoid any retained products of conception. Oxytocin is given. Uterus is closed in a two-step fashion, first layer running locking 0 Vicryl. Second layer imbricated with 0 Vicryl. Excellent reapproximation is noted. Bilateral tubes and ovaries appear normal. There is one small uterine fibroid noted on the right anterior aspect measuring approximately 2 cm. The abdomen is suctioned with suction on guard posterior to the uterus. Uterus is gently placed back into the abdominal cavity. Bilateral gutters are inspected and cleaned. Uterine incision is hemostatically intact. Posterior nose placed over the incision. The peritoneum was allowed close by secondary intention. The fascia is closed in a running rash and of 0 Vicryl with over ligation in the midline. Subcutaneous tissue was generously irrigated, clean and dry. It is reapproximated with 3-0 Vicryl in a running fashion. 4-0 undyed Monocryl issues for final skin closure in a subcuticular manner. Steri-Strips and Mastisol are applied to the wound. Dressing is applied. Child is noted to be draining clear urine. Patient is brought back to recovery room in excellent condition with stable vital signs including a pulse of 75, blood pressure 116/65. Infant weighs 4130 g or 9 lbs. 2 oz. Patient is requesting circumcision for her son. Total estimate a blood loss 669 mL's.
[2021-04-29] MEDS: ACETAMINOPHEN TAB 500 MG TAB PO SCH ×2 (16:25→23:33)
[2021-04-29] MEDS: IBUPROFEN 600 MG TAB PO SCH (20:28)
[2021-04-29] MEDS: SENNOSIDES-DOCUSATE SODIUM 1 EACH TAB PO SCH (20:28)
[2021-04-30] MEDS: IBUPROFEN 600 MG TAB PO SCH ×4 (02:36→20:29)
[2021-04-30] MEDS: LACTATED RINGERS 1,000 ML IV SCH ×5 (04:33→22:04)
[2021-04-30] MEDS: ACETAMINOPHEN TAB 500 MG TAB PO SCH ×3 (05:59→18:30)
[2021-04-30 07:55] LABS: Basophils % (A) 0 %; Eosinophils % (A) 0 %; HCT 38.3 % (34.0-46.0); HGB 12.2 gm/dL (11.4-16.0); Lymphocytes # (A) 1.6 k/uL (1.0-4.8); Lymphocytes % (A) 13 %; MCH 28.7 pg (25.0-35.0); MCV 89.6 fL (80.0-100.0); Mean Platelet Volume 8.7; Monocytes # (A) 0.3 k/uL (0-1.0); Monocytes % (A) 3 %; Neutrophils # (A) 9.7 k/uL (1.3-7.7); Neutrophils % (A) 83 %; Platelet Count 233 k/uL (150-450); RBC 4.27 m/uL (3.80-5.40); RDW 14.2 % (11.5-15.5); WBC 11.7 k/uL (3.8-10.6)
--- NOTE | 2021-04-30 08:02 | P.PN ---
Subjective Progress Note Date: 04/30/21 Principal diagnosis: Postoperative day #1 Slept well. Minimal pain. Tired, otherwise feeling well Objective - Vital Signs Vital signs: Vital Signs Temp 98.2 F 04/30/21 04:00 Pulse 78 04/30/21 04:00 Resp 16 04/30/21 04:00 BP 120/80 04/30/21 04:00 Pulse Ox 98 04/30/21 04:00 Intake & Output 04/29/21 04/30/21 04/30/21 18:59 06:59 18:59 Output Total 869 900 Balance -869 -900 Weight 111.584 kg Output: Urine 900 Emesis 200 Output, Quantitative 669 Blood Loss Other: # Voids 0 - Constitutional General appearance: Present: average body habitus, cooperative - EENT Eyes: Present: PERRLA ENT: Present: hearing grossly normal - Respiratory Respiratory: bilateral: CTA - Cardiovascular Rhythm: regular - Gastrointestinal General gastrointestinal: Present: normal bowel sounds - Integumentary Integumentary Comment(s): Incision clean and dry, intact, Steri-Strips applied. Fundus firm, midline, symmetric, 18 week size. Integumentary: Present: normal - Neurologic Neurologic: Present: CNII-XII intact - Musculoskeletal Musculoskeletal: Present: gait normal, strength equal bilaterally - Psychiatric Psychiatric: Present: A&O x's 3, appropriate affect, intact judgment & insight - Labs CBC & Chem 7: 04/30/21 07:40 Labs: Abnormal Lab Results - Last 24 Hours (Table) 04/29/21 04/30/21 Range/Units 11:22 07:40 WBC 11.0 H 11.7 H (3.8-10.6) k/uL Neutrophils # 8.6 H 9.7 H (1.3-7.7) k/uL Assessment and Plan Assessment: Doing well postoperative day #1 Plan: Continue postoperative care. Circumcision now. Likely discharge home tomorrow. Time with Patient: Less than 30
--- NOTE | 2021-04-30 08:51 | P.PN ---
Progress Note - Text Date: 04/30/2021 Time: 07:07 The patient is status post section Vital signs stable VAS: 0-10 Patient has no complaints of pain. The patient incurred some minimal itching yesterday, this itching is now subsiding. Pain meds to be managed by service.
[2021-04-30] MEDS: SENNOSIDES-DOCUSATE SODIUM 1 EACH TAB PO SCH ×2 (09:45→21:50)
[2021-04-30 17:40] VITALS: RESP 16
[2021-05-01] MEDS: ACETAMINOPHEN TAB 500 MG TAB PO SCH ×2 (00:29→06:42)
[2021-05-01] MEDS: IBUPROFEN 600 MG TAB PO SCH ×2 (03:30→09:11)
[2021-05-01 08:14] VITALS: BP 124/80; PULSE 97; TEMP 97.4
[2021-05-01] MEDS: SENNOSIDES-DOCUSATE SODIUM 1 EACH TAB PO SCH (09:51)
--- NOTE | 2021-05-01 11:38 | P.DS ---
Providers Date of admission: 04/29/21 10:41 Expected date of discharge: 05/01/21 Attending physician: Mary Walker Primary care physician: Stated None - Discharge Diagnosis(es) (1) Status post section Current Visit: Yes Status: Acute Hospital Course: The patient is a 35-year-old 3 para 1011 admitted at 38-5/7 weeks by good dating parameters. She is admitted for probable early labor and a finding in the office of breech presentation. She was taken to the operating room where she was delivered of a viable 9 lbs. 2 oz. baby boy with Apgars of 9 at 1 minute and 9 at 5 minutes in the breech presentation. Her and postoperative courses were unremarkable vital signs being stable and her temperature was afebrile throughout. She was deemed stable for discharge on and postoperative day #2 and was discharged home to follow-up in the office in 2 weeks for an incision check and 6 weeks routinely. Discharge instructions included calling for any significantly increased bleeding or foul-smelling lochia, significantly increased fever or abdominal pain, perineal complaints, breast complaints, incisional complaints, or anything else that concerned her. She was additionally instructed to have nothing in the vagina for at least 6 weeks time to include intercourse. She was also instructed to do no heavy lifting over the same period of time and to abstain from driving until off of all pain medications or 2 weeks' time, whichever came first. She understood her instructions and agrees to follow up as noted above. Discharge medications included continued vitamins as she has opted to breast-feed. She was otherwise to use [id number] analgesic pain medications. She was provided a prescription for tramadol 50 mg 1-2 by mouth every 6 hours. Pain, #20 dispensed with no refills. Maternal blood type is A+ and rubella status is immune. Discharge hemoglobin and hematocrit were 12.2 and 38.3 respectively. Procedures: #1. Primary low-transverse section Patient Condition at Discharge: Stable Plan - Discharge Summary Discharge Rx Participant: No New Discharge Prescriptions: No Action Loratadine [Claritin] 10 mg PO AC-SUPPER Sertraline [Zoloft] 25 mg PO HS metFORMIN HCL [Glucophage] 500 mg PO AC-SUPPER Pnv No.95/Ferrous Fum/Folic AC [ Multivitamin Tablet] 1 each PO DAILY Aspirin [Adult Low Dose Aspirin EC] 1 tab PO DAILY Discharge Medication List Loratadine [Claritin] 10 mg PO AC-SUPPER 06/23/17 [History] Sertraline [Zoloft] 25 mg PO HS 10/20/17 [History] Pnv No.95/Ferrous Fum/Folic AC [ Multivitamin Tablet] 1 each PO DAILY 06/04/19 [History] metFORMIN HCL [Glucophage] 500 mg PO AC-SUPPER 06/04/19 [History] Aspirin [Adult Low Dose Aspirin EC] 1 tab PO DAILY 04/07/21 [History] Follow up Appointment(s)/Referral(s): Mary Walker MD [STAFF PHYSICIAN] - 2 Weeks Discharge Disposition: HOME SELF-CARE
== END 2021-05-01 12:30 | disposition home or self-care (01) | DRG 788 ==
LOC: 4FBP 10:41
PROVIDERS: ADMIT Obstetrics & Gynecology; ATTEND Obstetrics & Gynecology
PROC: 10D00Z1 Extraction of Products of Conception, Low, Open Approach (ICD-10-PCS; principal; 2021-04-29 12:04)
DX: O32.1XX0 Maternal care for breech presentation, not applicable or unspecified (principal); O34.13 Maternal care for benign tumor of corpus uteri, third trimester; O99.344 Other mental disorders complicating childbirth; F32.A Depression, unspecified; E11.9 Type 2 diabetes mellitus without complications; Z79.84 Long term (current) use of oral hypoglycemic drugs; D25.9 Leiomyoma of uterus, unspecified; O99.214 Obesity complicating childbirth; Z3A.38 38 weeks gestation of pregnancy; Z79.82 Long term (current) use of aspirin; Z98.890 Other specified postprocedural states; Z91.030 Bee allergy status; Z91.048 Other nonmedicinal substance allergy status; Z37.0 Single live birth
CPT/HCPCS: 85025; 86850; 86900; 86901

== ENCOUNTER → 2022-06-01 | Outpatient (CLI) | payer BC ==
--- NOTE | 2022-06-01 15:30 | MM ---
Reason for Exam: Additional evaluation requested from abnormal screening. Last mammogram was performed 2 year(s) and 2 month(s) ago. Patient History: Menarche at age 10. First Full-Term at age 35. Late child-bearing (after 30). Hormonal Contraceptives for 5 years from age 21 until age 26. Last menstrual period: 05/09/2022 Risk Values: Rosa 5 year model risk: 0.7%. NCI Lifetime model risk: 14.9%. Prior Study Comparison: 04/06/2020 Bilateral Screening Mammogram, [facility]. Tissue Density: The breast tissue is heterogeneously dense. This may lower the sensitivity of mammography. Findings: Analyzed By CAD. No new suspicious mass, calcifications, or architectural distortion within either breast. Stable nodule within the upper outer breast posterior depth measuring up to 1.2 cm dating back to 2020 and considered benign. Overall Assessment: Benign, BI-RAD 2 Management: Screening Mammogram of both breasts in 1 year. A clinical breast exam by your physician is recommended on an annual basis and results should be correlated with mammographic findings. This exam should not preclude additional follow-up of suspicious palpable abnormalities. Results were given to the patient verbally at the time of exam. Electronically signed and approved by: Maciej León D.O.
== END | disposition home or self-care (01) ==
LOC: RADMAMWWP 09:01
PROVIDERS: ATTEND Obstetrics & Gynecology
DX: R92.8 Other abnormal and inconclusive findings on diagnostic imaging of breast (principal)
CPT/HCPCS: 77066

== ENCOUNTER → 2023-07-14 | Outpatient (CLI) | payer BC ==
--- NOTE | 2023-07-14 11:20 | MM ---
Reason for Exam: Follow-up at short interval from prior study. Last mammogram was performed 1 year(s) and 1 month(s) ago. Patient History: Menarche at age 10. First Full-Term at age 35. Late child-bearing (after 29). Hormonal Contraceptives for 5 years from age 21 until age 26. Paternal aunt had breast cancer under age 50. Risk Values: Rosa 5 year model risk: 0.5%. NCI Lifetime model risk: 10.6%. Prior Study Comparison: 04/06/2020 Bilateral Screening Mammogram, [facility]. 06/01/2022 Bilateral MG diagnostic mammo w CAD YODIT, [facility]. Tissue Density: Right: The breasts are heterogeneously dense, which may obscure small masses. Findings: Analyzed By CAD. Patient requested on the right breast mammogram at this time. Left breast mammography can be performed when the patient requests. Pattern is stable. There is a 1.0 cm oval density upper outer right breast within measurement error, appears stable from comparison. No suspicious groups of microcalcifications, spiculated or lobular masses, architectural distortion or other secondary signs of malignancy are mammographically apparent. Overall Assessment: Benign, BI-RAD 2 Management: Screening Mammogram of both breasts in 1 year. A negative mammogram report should not preclude additional follow up of suspicious palpable abnormalities. Patient should continue monthly self breast exam. A clinical breast exam by your physician is recommended on an annual basis and results should be correlated with mammographic findings. Note on Rosa scores and lifetime risk: 1. A Rosa score greater than 3% is considered moderate risk. If this is the case, consider specialist referral to assess eligibility for a risk reducing agent. 2. If overall lifetime risk for the development of breast cancer is 20% or higher, the patient may qualify for future screening with alternating mammogram and breast MRI. Electronically signed and approved by: Regis Frank D.O. Radiologis
== END | disposition home or self-care (01) ==
LOC: RADMAMWWP 10:11
PROVIDERS: ATTEND Obstetrics & Gynecology Obstetrics
DX: R92.331 Mammographic heterogeneous density, right breast (principal); Z80.3 Family history of malignant neoplasm of breast
CPT/HCPCS: 77061; 77065